=== PATIENT | male | born 1955 | race Caucasian/White ===

== ENCOUNTER 2021-10-27 07:30 | Outpatient (RCR) | payer MEDICARE, SELFPAY | END 2022-02-05 09:45 | disposition home or self-care (01) | PROVIDERS: PCP Family Medicine; Visit Provider Orthopaedic Surgery | DX: M25.511 Pain in right shoulder (principal); M25.512 Pain in left shoulder; Z51.89 Encounter for other specified aftercare | CPT/HCPCS: 97110; 97140; 97162 ==

== ENCOUNTER 2023-08-12 07:30 | Outpatient (RCR) | payer MEDICARE, SELFPAY | END 2023-12-10 23:59 | disposition home or self-care (01) | PROVIDERS: PCP Family Medicine; Visit Provider Psychiatry & Neurology Neurology | DX: M54.17 Radiculopathy, lumbosacral region (principal); R29.818 Other symptoms and signs involving the nervous system; R26.81 Unsteadiness on feet; Z51.89 Encounter for other specified aftercare | CPT/HCPCS: 97110; 97140; 97162 ==